=== PATIENT | female | born 1935 | race Caucasian/White ===

== ENCOUNTER 2019-09-01 21:25 | Inpatient (IN) ==
[2019-09-02] MEDS ORDERED: Naloxone 0.4 MG/ML INJ IVP PRN (03:52)
[2019-09-02] MEDS ORDERED: 0.9 % Sodium Chloride 1,000 ML IVC SCH (04:00)
[2019-09-02 04:23] LABS: Basophils # 0.1 K/mcL (0.0-0.2); Basophils % 0.4 %; Hematocrit 38.8 % (35.3-44.9); Hemoglobin 11.6 g/dL (11.5-15.4); Immature Granulocytes % 3.2 % (0-4); Lymphocytes # 0.4 K/mcL (0.6-4.6); Lymphocytes % 3.1 %; Mean Corpuscular HGB Conc 29.9 g/dL (31.6-35.5); Mean Corpuscular Volume 100.3 fL (83.0-100.0); Mean Platelet Volume 11.1 fL (9.4-12.4); Monocytes # 0.3 K/mcL (0.0-1.3); Monocytes % 2.7 %; Neutrophils # 10.9 K/mcL (1.6-8.9); Platelet Count 167 K/mcL (140-400); Red Blood Count 3.87 M/mcL (3.82-4.97); Red Cell Distribution Width 13.5 % (11.5-14.5); Segmented Neutrophils % 90.6 %
[2019-09-02 04:25] LABS: INR 0.9; Prothrombin Time 10.2 Seconds (9.4-12.1)
[2019-09-02 04:27] LABS: Activated Partial Thrombo Time 23.6 Seconds (26.0-36.0)
[2019-09-02 04:43] LABS: Albumin 2.7 g/dL (3.5-5.7); Albumin/Globulin Ratio 1.1 (1.1-2.2); Bilirubin,Total 0.2 mg/dL (0.3-1.0); Calcium 8.4 mg/dL (8.6-10.3); Globulin 2.5 g/dL (2.4-3.5); Magnesium 2.1 mg/dL (1.6-2.6); Phosphorous 4.3 mg/dL (2.7-4.5); Potassium 4.1 mEq/L (3.5-5.1); Total Protein 5.2 g/dL (6.4-8.9); Troponin I 0.08 ng/mL (< 0.04)
[2019-09-02] MEDS ORDERED: 0.9 % Sodium Chloride 500 ML IVC ONE (05:55)
[2019-09-02] MEDS ORDERED: cefTRIAXone 1,000 MG in Water for inj. (sterile) 10 ML IVPB SCH (06:00)
[2019-09-02] MEDS: *HR* Heparin 5,000 UNIT/ML VIAL SQ SCH ×3 (06:32→21:48)
[2019-09-02] MEDS: MethylPREDNISolone 40 MG/ML VIAL IVP SCH ×3 (06:33→18:46)
[2019-09-02] MEDS: Azithromycin 500 MG in 0.9 % Sodium Chloride 250 ML IVPB SCH (06:33)
[2019-09-02] MEDS: Ipratropium/Albuterol Neb 3 ML IH SCH ×5 (08:19→23:33)
[2019-09-02] MEDS: Piperacillin/Tazobactam 3.375 GM in 0.9 % Sodium Chloride Mini Bag 100 ML IVPB SCH ×2 (11:25→21:47)
[2019-09-03 02:09] LABS: Hematocrit 39.3 % (35.3-44.9); Hemoglobin 11.9 g/dL (11.5-15.4); Immature Granulocytes % 8.2 % (0-4); Lymphocytes # 0.3 K/mcL (0.6-4.6); Lymphocytes % 3.2 %; Mean Corpuscular HGB Conc 30.3 g/dL (31.6-35.5); Mean Corpuscular Hemoglobin 29.4 pg (28.0-33.3); Mean Platelet Volume 11.4 fL (9.4-12.4); Monocytes # 0.4 K/mcL (0.0-1.3); Neutrophils # 8.9 K/mcL (1.6-8.9); Platelet Count 165 K/mcL (140-400); Red Blood Count 4.05 M/mcL (3.82-4.97); Red Cell Distribution Width 13.3 % (11.5-14.5); Segmented Neutrophils % 84.6 %; White Blood Count 10.5 K/mcL (4.3-11.1)
[2019-09-03 02:25] LABS: Calcium 8.1 mg/dL (8.6-10.3)
[2019-09-03 02:30] LABS: Platelet Estimate Normal (Normal)
[2019-09-03] MEDS: Ipratropium/Albuterol Neb 3 ML IH SCH ×6 (03:57→23:45)
[2019-09-03] MEDS: Azithromycin 500 MG in 0.9 % Sodium Chloride 250 ML IVPB SCH (06:27)
[2019-09-03] MEDS: *HR* Heparin 5,000 UNIT/ML VIAL SQ SCH ×3 (06:28→21:54)
[2019-09-03] MEDS: Piperacillin/Tazobactam 3.375 GM in 0.9 % Sodium Chloride Mini Bag 100 ML IVPB SCH ×2 (10:57→21:55)
[2019-09-03] MEDS: MethylPREDNISolone 40 MG/ML VIAL IVP SCH ×2 (10:57→18:45)
[2019-09-04] MEDS: MethylPREDNISolone 40 MG/ML VIAL IVP SCH ×3 (00:41→16:02)
[2019-09-04] MEDS: Ipratropium/Albuterol Neb 3 ML IH SCH ×6 (04:22→23:39)
[2019-09-04] MEDS: *HR* Heparin 5,000 UNIT/ML VIAL SQ SCH ×3 (06:02→21:58)
[2019-09-04] MEDS: Azithromycin 500 MG in 0.9 % Sodium Chloride 250 ML IVPB SCH (06:02)
[2019-09-04 06:41] LABS: Hematocrit 42.6 % (35.3-44.9); Hemoglobin 12.5 g/dL (11.5-15.4); Mean Corpuscular HGB Conc 29.3 g/dL (31.6-35.5); Mean Corpuscular Hemoglobin 29.7 pg (28.0-33.3); Mean Corpuscular Volume 101.2 fL (83.0-100.0); Platelet Count 152 K/mcL (140-400); Red Blood Count 4.21 M/mcL (3.82-4.97); Red Cell Distribution Width 13.4 % (11.5-14.5); White Blood Count 11.9 K/mcL (4.3-11.1)
[2019-09-04 07:07] LABS: Calcium 8.7 mg/dL (8.6-10.3); Potassium 4.5 mEq/L (3.5-5.1)
[2019-09-04 07:13] LABS: Lymphocytes # 1.1 K/mcL (0.6-4.6); Monocytes # 0.1 K/mcL (0.0-1.3); Neutrophils # 10.6 K/mcL (1.6-8.9); Platelet Estimate Normal (Normal); Reactive Lymphocytes Present (Not Present)
[2019-09-04] MEDS: Piperacillin/Tazobactam 3.375 GM in 0.9 % Sodium Chloride Mini Bag 100 ML IVPB SCH ×2 (09:02→21:58)
[2019-09-04] MEDS: Metoprolol XL (24 HR) Succ 50 MG TAB.ER.24H PO SCH (11:56)
[2019-09-04] MEDS ORDERED: E-Z-PAQUE (BARIUM SULF) SUSP 1 BOTTLE PO ONE (13:40)
[2019-09-04] MEDS ORDERED: E-Z-HD (BARIUM SULF) SUSPENSION PO ONE (13:40)
[2019-09-05] MEDS ORDERED: *HR* Labetalol 20 MG/4 ML SYRINGE IVP ONE (00:55)
[2019-09-05] MEDS: MethylPREDNISolone 40 MG/ML VIAL IVP SCH ×4 (01:36→16:19)
[2019-09-05] MEDS: Ipratropium/Albuterol Neb 3 ML IH SCH ×6 (03:32→23:19)
[2019-09-05] MEDS ORDERED: *HR* Metoprolol 5 MG/5 ML VIAL IVP ONE (03:44)
[2019-09-05 04:23] LABS: Calcium 8.4 mg/dL (8.6-10.3); Potassium 4.2 mEq/L (3.5-5.1)
[2019-09-05] MEDS: *HR* Heparin 5,000 UNIT/ML VIAL SQ SCH ×3 (05:12→22:18)
[2019-09-05] MEDS: Azithromycin 500 MG in 0.9 % Sodium Chloride 250 ML IVPB SCH (05:12)
[2019-09-05 05:43] LABS: Mean Corpuscular HGB Conc 29.3 g/dL (31.6-35.5); Mean Corpuscular Hemoglobin 29.1 pg (28.0-33.3); Mean Corpuscular Volume 99.5 fL (83.0-100.0); Mean Platelet Volume 10.6 fL (9.4-12.4); Platelet Count 151 K/mcL (140-400); Red Blood Count 4.12 M/mcL (3.82-4.97); Red Cell Distribution Width 13.3 % (11.5-14.5); White Blood Count 12.4 K/mcL (4.3-11.1)
[2019-09-05 06:56] LABS: Lymphocytes # 1.2 K/mcL (0.6-4.6); Monocytes # 0.3 K/mcL (0.0-1.3); Neutrophils # 10.7 K/mcL (1.6-8.9); Platelet Estimate Normal (Normal)
[2019-09-05] MEDS: Metoprolol XL (24 HR) Succ 50 MG TAB.ER.24H PO SCH (08:32)
[2019-09-05] MEDS: Piperacillin/Tazobactam 3.375 GM in 0.9 % Sodium Chloride Mini Bag 100 ML IVPB SCH ×2 (08:39→22:18)
[2019-09-05] MEDS ORDERED: Acetaminophen 325 MG TABLET PO PRN (09:27)
[2019-09-05] MEDS: amLODIPine 5 MG TABLET PO SCH (09:56)
[2019-09-05 12:19] LABS: Bilirubin,Urine Negative (Negative); Blood,Urine Moderate (Negative); Clarity,Urine Turbid (Clear); Glucose,Urine (UA) Normal (Normal); Ketones,Urine Negative (Negative); Leukocyte Esterase,Urine Large (Negative); Nitrite,Urine Negative (Negative); Protein,Urine 100 mg/dL (Neg-Trace); Urobilinogen,Urine Normal (Normal)
[2019-09-05 12:20] LABS: Sodium, Urine 113.6 mEq/L
[2019-09-05 12:26] LABS: Color,Urine Light-Yellow (Yellow)
[2019-09-05 12:34] LABS: Bacteria,Urine None Seen per hpf (None-Few); Squamous Epithelial Cell,Urine Many per lpf (None-Few); WBC,Urine TNTC per hpf (0-3)
[2019-09-05 13:00] LABS: Yeast,Urine Many per hpf (None Seen)
[2019-09-05 13:01] LABS: Renal Epithelial Cells,Urine Few per hpf (None-Few); Transitional Epi Cells,Urine Few per hpf (None-Few)
[2019-09-05] MEDS ORDERED: Metoprolol XL (24 HR) Succ 50 MG TAB.ER.24H PO ONE (15:00)
[2019-09-06] MEDS: MethylPREDNISolone 40 MG/ML VIAL IVP SCH ×2 (01:07→09:27)
[2019-09-06] MEDS: Ipratropium/Albuterol Neb 3 ML IH SCH ×3 (03:45→11:09)
[2019-09-06] MEDS: *HR* Heparin 5,000 UNIT/ML VIAL SQ SCH ×2 (05:14→12:43)
[2019-09-06] MEDS: Azithromycin 500 MG in 0.9 % Sodium Chloride 250 ML IVPB SCH (05:15)
[2019-09-06 06:41] VITALS: BP 167/79
[2019-09-06] MEDS: Piperacillin/Tazobactam 3.375 GM in 0.9 % Sodium Chloride Mini Bag 100 ML IVPB SCH (08:20)
[2019-09-06] MEDS: amLODIPine 5 MG TABLET PO SCH (08:24)
[2019-09-06] MEDS ORDERED: predniSONE 20 MG TABLET PO SCH (09:00)
[2019-09-06] MEDS ORDERED: Metoprolol XL (24 HR) Succ 50 MG TAB.ER.24H PO SCH (09:00)
[2019-09-06] MEDS ORDERED: MethylPREDNISolone 40 MG/ML VIAL IVP SCH (18:00)
== END 2019-09-06 15:44 | DRG 682 ==
LOC: 2NENU → SUATTDRO 09-02 01:45
PROVIDERS: ADMIT Student in an Organized Health Care Education/Training Program; ATTEND Internal Medicine

== ENCOUNTER 2019-09-08 10:26 | Inpatient (IN) ==
[2019-09-08] MEDS ORDERED: 0.9 % Sodium Chloride 250 ML IVC ONE (10:39)
[2019-09-08 11:06] LABS: Basophils % 0.2 %; Eosinophils # 0.2 K/mcL (0.0-0.6); Eosinophils % 0.8 %; Hemoglobin 10.6 g/dL (11.5-15.4); Immature Granulocytes % 1.5 % (0-4); Lymphocytes % 3.3 %; Mean Corpuscular HGB Conc 29.4 g/dL (31.6-35.5); Mean Corpuscular Hemoglobin 29.8 pg (28.0-33.3); Mean Corpuscular Volume 101.1 fL (83.0-100.0); Monocytes % 5.3 %; Neutrophils # 17.5 K/mcL (1.6-8.9); Platelet Count 140 K/mcL (140-400); Red Blood Count 3.56 M/mcL (3.82-4.97); Red Cell Distribution Width 13.2 % (11.5-14.5); Segmented Neutrophils % 88.9 %
[2019-09-08 11:07] LABS: Lymphocytes # 0.7 K/mcL (0.6-4.6); White Blood Count 19.7 K/mcL (4.3-11.1)
[2019-09-08 11:13] LABS: INR 0.9; Prothrombin Time 10.7 Seconds (9.4-12.1)
[2019-09-08 11:21] LABS: Albumin 2.6 g/dL (3.5-5.7); Albumin/Globulin Ratio 1.3 (1.1-2.2); Bilirubin,Total 0.3 mg/dL (0.3-1.0); Calcium 8.5 mg/dL (8.6-10.3); Potassium 3.5 mEq/L (3.5-5.1); Total Protein 4.6 g/dL (6.4-8.9)
[2019-09-08] MEDS ORDERED: Naloxone 0.4 MG/ML INJ IVP PRN (12:39)
[2019-09-08] MEDS ORDERED: Ondansetron 4 MG/2 ML VIAL IVP PRN (12:43)
[2019-09-08] MEDS ORDERED: D5% in Water 1,000 ML IVC PRN (12:44)
[2019-09-08] MEDS ORDERED: *HR* Dextrose 50 % in Water (Syg) 50 ML SYRINGE IVP PRN (12:44)
[2019-09-08] MEDS ORDERED: Dextrose Gel 15 GM/37.5 ML TUBE PO PRN ×2 (12:44)
[2019-09-08] MEDS ORDERED: D5% in 0.45% NACL 1,000 ML IVC SCH (12:45)
[2019-09-08] MEDS ORDERED: Ipratropium/Albuterol Neb 3 ML IH PRN (12:48)
[2019-09-08] MEDS ORDERED: levoFLOXacin 750 MG/150 ML 750 MG/150 ML BAG IVPB SCH ×2 (12:50→14:30)
[2019-09-08 15:44] LABS: Basophils % 0.2 %; Eosinophils # 0.1 K/mcL (0.0-0.6); Eosinophils % 0.6 %; Hematocrit 36.6 % (35.3-44.9); Hemoglobin 10.9 g/dL (11.5-15.4); Immature Granulocytes % 1.7 % (0-4); Lymphocytes # 0.6 K/mcL (0.6-4.6); Lymphocytes % 3.5 %; Mean Corpuscular HGB Conc 29.8 g/dL (31.6-35.5); Mean Corpuscular Hemoglobin 29.4 pg (28.0-33.3); Mean Corpuscular Volume 98.7 fL (83.0-100.0); Mean Platelet Volume 11.3 fL (9.4-12.4); Monocytes # 0.7 K/mcL (0.0-1.3); Monocytes % 4.1 %; Neutrophils # 14.4 K/mcL (1.6-8.9); Platelet Count 143 K/mcL (140-400); Red Blood Count 3.71 M/mcL (3.82-4.97); Red Cell Distribution Width 13.2 % (11.5-14.5); Segmented Neutrophils % 89.9 %
[2019-09-08] MEDS: Insulin LISPRO 300 UNITS/3 ML VIAL SQ SCH (18:52)
[2019-09-08] MEDS: MetroNIDAZOLE 500 MG/100 ML 500 MG/100 ML BAG IVPB SCH ×3 (18:59→23:04)
[2019-09-08] MEDS: Pantoprazole 40 MG VIAL IVP SCH (19:00)
[2019-09-08] MEDS: Melatonin 3 MG TABLET PO SCH (21:01)
[2019-09-08 21:20] LABS: Basophils % 0.1 %; Eosinophils # 0.1 K/mcL (0.0-0.6); Eosinophils % 1.2 %; Hematocrit 31.7 % (35.3-44.9); Lymphocytes # 0.7 K/mcL (0.6-4.6); Lymphocytes % 6.3 %; Mean Corpuscular Hemoglobin 29.3 pg (28.0-33.3); Mean Platelet Volume 10.8 fL (9.4-12.4); Monocytes # 0.7 K/mcL (0.0-1.3); Monocytes % 6.4 %; Neutrophils # 9.7 K/mcL (1.6-8.9); Platelet Count 119 K/mcL (140-400); Red Blood Count 3.14 M/mcL (3.82-4.97); Red Cell Distribution Width 13.2 % (11.5-14.5); White Blood Count 11.5 K/mcL (4.3-11.1)
[2019-09-08 21:28] LABS: Hemoglobin 9.2 g/dL (11.5-15.4)
[2019-09-09] MEDS: Insulin LISPRO 300 UNITS/3 ML VIAL SQ SCH ×5 (00:19→23:44)
[2019-09-09 03:02] LABS: Calcium 7.8 mg/dL (8.6-10.3); Magnesium 1.4 mg/dL (1.6-2.6); Phosphorous 3.8 mg/dL (2.7-4.5); Potassium 3.5 mEq/L (3.5-5.1)
[2019-09-09] MEDS: MetroNIDAZOLE 500 MG/100 ML 500 MG/100 ML BAG IVPB SCH ×2 (06:07→13:16)
[2019-09-09] MEDS: Pantoprazole 40 MG VIAL IVP SCH ×2 (06:07→17:34)
[2019-09-09 08:18] LABS: ABG Base Excess 12 mEq/L (-2 to 3); ABG HCO3 40 mEq/L (21-27); ABG Oxygen Saturation 92 % (95-98); ABG PCO2 81 mmHg (35-45); ABG PH 7.31 pH Units (7.32-7.45); ABG PO2 74 mmHg (85-104); ABG TCO2 43 mEq/L (20-26)
[2019-09-09] MEDS: Metoprolol XL (24 HR) Succ 50 MG TAB.ER.24H PO SCH (09:45)
[2019-09-09] MEDS: Cyanocobalamin (B-12) 1,000 MCG TABLET PO SCH (09:45)
[2019-09-09] MEDS ORDERED: 0.9 % Sodium Chloride 1,000 ML IVC ONE (13:28)
[2019-09-09] MEDS ORDERED: Calcium Gluconate 1gm/50mL 1 GM/50 ML BAG IVPB ONE (13:44)
[2019-09-09 14:03] LABS: Basophils % 0.1 %; Monocytes % 5.8 %
[2019-09-09 14:04] LABS: Hematocrit 32.9 % (35.3-44.9); Hemoglobin 9.8 g/dL (11.5-15.4); Mean Corpuscular HGB Conc 29.8 g/dL (31.6-35.5); Mean Corpuscular Hemoglobin 29.1 pg (28.0-33.3); Mean Corpuscular Volume 97.6 fL (83.0-100.0); Mean Platelet Volume 10.4 fL (9.4-12.4); Platelet Count 114 K/mcL (140-400); Red Blood Count 3.37 M/mcL (3.82-4.97); Segmented Neutrophils % 84.8 %; White Blood Count 11.7 K/mcL (4.3-11.1)
[2019-09-09 14:05] LABS: Eosinophils # 0.4 K/mcL (0.0-0.6); Lymphocytes # 0.6 K/mcL (0.6-4.6); Lymphocytes % 5.3 %; Monocytes # 0.7 K/mcL (0.0-1.3); Neutrophils # 9.9 K/mcL (1.6-8.9)
[2019-09-09 14:06] LABS: Anisocytosis 1+ (Not Present); Hypochromasia Present (Not Present); Platelet Estimate Slight Decrease (Normal)
[2019-09-09] MEDS ORDERED: Cefdinir 300 MG CAPSULE PO SCH (21:00)
[2019-09-09] MEDS: *HR* OxyCODONE/APAP 5/325 TABLET PO PRN (21:10)
[2019-09-09] MEDS: Melatonin 3 MG TABLET PO SCH (21:10)
[2019-09-10 05:43] LABS: ABG Base Excess 8 mEq/L (-2 to 3); ABG HCO3 35 mEq/L (21-27); ABG Oxygen Saturation 95 % (95-98); ABG PCO2 64 mmHg (35-45); ABG PH 7.35 pH Units (7.32-7.45); ABG PO2 80 mmHg (85-104); ABG TCO2 37 mEq/L (20-26); Blood Gas Pressure Support 14 cm H2O
[2019-09-10] MEDS: Insulin LISPRO 300 UNITS/3 ML VIAL SQ SCH ×4 (05:52→23:35)
[2019-09-10] MEDS: Pantoprazole 40 MG VIAL IVP SCH ×2 (05:56→17:09)
[2019-09-10 06:09] LABS: Basophils % 0.2 %; Eosinophils # 0.3 K/mcL (0.0-0.6); Eosinophils % 2.7 %; Hematocrit 33.3 % (35.3-44.9); Hemoglobin 9.9 g/dL (11.5-15.4); Immature Granulocytes % 1.1 % (0-4); Lymphocytes # 0.5 K/mcL (0.6-4.6); Lymphocytes % 5.1 %; Mean Corpuscular HGB Conc 29.7 g/dL (31.6-35.5); Mean Corpuscular Hemoglobin 28.9 pg (28.0-33.3); Mean Corpuscular Volume 97.4 fL (83.0-100.0); Mean Platelet Volume 10.5 fL (9.4-12.4); Monocytes # 0.6 K/mcL (0.0-1.3); Monocytes % 5.8 %; Neutrophils # 8.3 K/mcL (1.6-8.9); Platelet Count 119 K/mcL (140-400); Red Blood Count 3.42 M/mcL (3.82-4.97); Red Cell Distribution Width 13.1 % (11.5-14.5); Segmented Neutrophils % 85.1 %; White Blood Count 9.8 K/mcL (4.3-11.1)
[2019-09-10 06:30] LABS: Calcium 8.2 mg/dL (8.6-10.3); Potassium 3.3 mEq/L (3.5-5.1)
[2019-09-10] MEDS ORDERED: D5% in Water 1,000 ML IVC SCH (08:30)
[2019-09-10] MEDS: Cefdinir 300 MG CAPSULE PO SCH (09:19)
[2019-09-10] MEDS: predniSONE 20 MG TABLET PO SCH (09:19)
[2019-09-10] MEDS: Cyanocobalamin (B-12) 1,000 MCG TABLET PO SCH (09:19)
[2019-09-10] MEDS: Metoprolol XL (24 HR) Succ 50 MG TAB.ER.24H PO SCH (09:20)
[2019-09-10] MEDS: Ipratropium/Albuterol Neb 3 ML IH SCH ×4 (11:57→23:48)
[2019-09-10] MEDS: Budesonide/Formoterol 160/4.5 1 PUFF INH IH SCH ×2 (11:57→19:50)
[2019-09-10] MEDS: *HR* OxyCODONE/APAP 5/325 TABLET PO PRN (13:07)
[2019-09-10] MEDS ORDERED: Potassium Chloride 40 MEQ, Lidocaine 1% 2 ML in 0.9 % Sodium Chloride 500 ML IVPB ONE (13:17)
[2019-09-10 13:22] LABS: Adenovirus F 40/41 PCR Not detected (Not detect); Astrovirus PCR Not detected (Not detect); C.difficile Toxin A/B Gene PCR Not detected (Not detect); Campylobacter by PCR Not detected (Not detect); Cryptosporidium by PCR Not detected (Not detect); Cyclospora cayetanensis PCR Not detected (Not detect); E. coli O157 by PCR Not detected (Not detect); Entamoeba histolytica PCR Not detected (Not detect); Enteroaggregative E.coli(EAEC) Not detected (Not detect); Enteropathogenic E.coli(EPEC) Not detected (Not detect); Enterotoxigenic E.coli (ETEC) Not detected (Not detect); Giardia lamblia PCR Not detected (Not detect); Norovirus GI/GII PCR Not detected (Not detect); Plesiomonas shigelloides PCR Not detected (Not detect); Rotavirus A PCR Not detected (Not detect); Salmonella PCR Not detected (Not detect); Sapovirus PCR Not detected (Not detect); Shig/EnteroinvasiveE coli EIEC Not detected (Not detect); Shigalike tox-prod E coli STEC Not detected (Not detect); Vibrio PCR Not detected (Not detect); Vibrio cholerae PCR Not detected (Not detect); Yersinia enterocolitica PCR Not detected (Not detect)
[2019-09-10] MEDS: amLODIPine 5 MG TABLET PO SCH (15:08)
[2019-09-10] MEDS: Melatonin 3 MG TABLET PO SCH (20:48)
[2019-09-11 03:02] LABS: Basophils % 0.1 %; Eosinophils % 0.4 %; Hematocrit 28.9 % (35.3-44.9); Immature Granulocytes % 0.7 % (0-4); Lymphocytes # 0.6 K/mcL (0.6-4.6); Lymphocytes % 6.1 %; Mean Corpuscular HGB Conc 31.1 g/dL (31.6-35.5); Mean Corpuscular Volume 96.3 fL (83.0-100.0); Mean Platelet Volume 11.1 fL (9.4-12.4); Monocytes # 0.5 K/mcL (0.0-1.3); Monocytes % 5.2 %; Platelet Count 117 K/mcL (140-400); Red Cell Distribution Width 13.2 % (11.5-14.5); Segmented Neutrophils % 87.5 %; White Blood Count 9.1 K/mcL (4.3-11.1)
[2019-09-11 03:19] LABS: Calcium 8.1 mg/dL (8.6-10.3); Magnesium 1.6 mg/dL (1.6-2.6); Phosphorous 2.3 mg/dL (2.7-4.5); Potassium 3.6 mEq/L (3.5-5.1)
[2019-09-11] MEDS: Ipratropium/Albuterol Neb 3 ML IH SCH ×6 (03:46→23:39)
[2019-09-11] MEDS: Insulin LISPRO 300 UNITS/3 ML VIAL SQ SCH ×3 (05:22→17:23)
[2019-09-11] MEDS: Pantoprazole 40 MG VIAL IVP SCH (05:25)
[2019-09-11] MEDS: Budesonide/Formoterol 160/4.5 1 PUFF INH IH SCH ×2 (07:48→20:10)
[2019-09-11] MEDS: predniSONE 20 MG TABLET PO SCH (10:05)
[2019-09-11] MEDS: *HR* OxyCODONE/APAP 5/325 TABLET PO PRN ×2 (10:05→17:23)
[2019-09-11] MEDS: Cefdinir 300 MG CAPSULE PO SCH (10:06)
[2019-09-11] MEDS: Metoprolol XL (24 HR) Succ 50 MG TAB.ER.24H PO SCH (10:06)
[2019-09-11] MEDS: amLODIPine 5 MG TABLET PO SCH (10:06)
[2019-09-11] MEDS: Cyanocobalamin (B-12) 1,000 MCG TABLET PO SCH (10:06)
[2019-09-11] MEDS: Nystatin Ointment 15 GM TUBE TP SCH ×3 (13:13→21:18)
[2019-09-11] MEDS: Melatonin 3 MG TABLET PO SCH (21:18)
[2019-09-12] MEDS: Insulin LISPRO 300 UNITS/3 ML VIAL SQ SCH ×5 (00:41→21:55)
[2019-09-12] MEDS: Ipratropium/Albuterol Neb 3 ML IH SCH ×5 (04:35→19:40)
[2019-09-12] MEDS: Budesonide/Formoterol 160/4.5 1 PUFF INH IH SCH ×2 (07:19→19:40)
[2019-09-12 08:41] LABS: Basophils % 0.1 %; Eosinophils # 0.1 K/mcL (0.0-0.6); Eosinophils % 0.7 %; Hematocrit 27.3 % (35.3-44.9); Hemoglobin 8.4 g/dL (11.5-15.4); Immature Granulocytes % 0.6 % (0-4); Lymphocytes # 0.8 K/mcL (0.6-4.6); Lymphocytes % 11.5 %; Mean Corpuscular HGB Conc 30.8 g/dL (31.6-35.5); Mean Corpuscular Hemoglobin 29.7 pg (28.0-33.3); Mean Corpuscular Volume 96.5 fL (83.0-100.0); Mean Platelet Volume 11.1 fL (9.4-12.4); Monocytes # 0.5 K/mcL (0.0-1.3); Monocytes % 6.8 %; Neutrophils # 5.6 K/mcL (1.6-8.9); Platelet Count 124 K/mcL (140-400); Red Blood Count 2.83 M/mcL (3.82-4.97); Red Cell Distribution Width 13.1 % (11.5-14.5); Segmented Neutrophils % 80.3 %
[2019-09-12 09:02] LABS: Calcium 8.1 mg/dL (8.6-10.3); Phosphorous 2.7 mg/dL (2.7-4.5); Potassium 3.3 mEq/L (3.5-5.1)
[2019-09-12] MEDS: Cyanocobalamin (B-12) 1,000 MCG TABLET PO SCH (09:30)
[2019-09-12] MEDS: Metoprolol XL (24 HR) Succ 50 MG TAB.ER.24H PO SCH (09:30)
[2019-09-12] MEDS: predniSONE 20 MG TABLET PO SCH (09:30)
[2019-09-12] MEDS: Cefdinir 300 MG CAPSULE PO SCH (09:30)
[2019-09-12] MEDS: amLODIPine 5 MG TABLET PO SCH (09:30)
[2019-09-12] MEDS: Iron Sucrose Complex 200 MG in 0.9 % Sodium Chloride 100 ML IVPB SCH (12:46)
[2019-09-12] MEDS: Nystatin Ointment 15 GM TUBE TP SCH ×4 (12:47→22:00)
[2019-09-12 13:08] LABS: Hematocrit 29.3 % (35.3-44.9); Hemoglobin 8.6 g/dL (11.5-15.4)
[2019-09-12 13:20] LABS: Calcium 8.2 mg/dL (8.6-10.3); Potassium 3.3 mEq/L (3.5-5.1)
[2019-09-12] MEDS: Melatonin 3 MG TABLET PO SCH (22:00)
[2019-09-13] MEDS: Ipratropium/Albuterol Neb 3 ML IH SCH ×7 (00:04→23:05)
[2019-09-13 05:04] LABS: Immature Granulocytes % 1.2 % (0-4); Lymphocytes # 0.4 K/mcL (0.6-4.6); Lymphocytes % 6.8 %; Mean Corpuscular HGB Conc 29.6 g/dL (31.6-35.5); Mean Corpuscular Hemoglobin 29.4 pg (28.0-33.3); Mean Corpuscular Volume 99.3 fL (83.0-100.0); Monocytes # 0.4 K/mcL (0.0-1.3); Monocytes % 6.5 %; Neutrophils # 5.5 K/mcL (1.6-8.9); Platelet Count 133 K/mcL (140-400); Red Blood Count 2.72 M/mcL (3.82-4.97); Red Cell Distribution Width 13.2 % (11.5-14.5); Segmented Neutrophils % 85.5 %; White Blood Count 6.5 K/mcL (4.3-11.1)
[2019-09-13 05:25] LABS: Calcium 7.9 mg/dL (8.6-10.3); Phosphorous 2.5 mg/dL (2.7-4.5); Potassium 4.1 mEq/L (3.5-5.1)
[2019-09-13] MEDS: Insulin LISPRO 300 UNITS/3 ML VIAL SQ SCH ×4 (07:30→20:46)
[2019-09-13] MEDS ORDERED: D5% in Water 1,000 ML IVC SCH (08:15)
[2019-09-13] MEDS: Cefdinir 300 MG CAPSULE PO SCH (10:02)
[2019-09-13] MEDS: amLODIPine 5 MG TABLET PO SCH (10:02)
[2019-09-13] MEDS: predniSONE 20 MG TABLET PO SCH (10:02)
[2019-09-13] MEDS: Metoprolol XL (24 HR) Succ 50 MG TAB.ER.24H PO SCH (10:02)
[2019-09-13] MEDS: Cyanocobalamin (B-12) 1,000 MCG TABLET PO SCH (10:02)
[2019-09-13] MEDS: Budesonide/Formoterol 160/4.5 1 PUFF INH IH SCH ×2 (11:12→20:29)
[2019-09-13 13:57] LABS: Basophils % 0.1 %; Eosinophils # 0.1 K/mcL (0.0-0.6); Eosinophils % 0.5 %; Hematocrit 30.7 % (35.3-44.9); Hemoglobin 9.3 g/dL (11.5-15.4); Immature Granulocytes % 0.9 % (0-4); Lymphocytes # 0.8 K/mcL (0.6-4.6); Lymphocytes % 8.2 %; Mean Corpuscular HGB Conc 30.3 g/dL (31.6-35.5); Mean Corpuscular Hemoglobin 29.2 pg (28.0-33.3); Mean Corpuscular Volume 96.2 fL (83.0-100.0); Mean Platelet Volume 11.3 fL (9.4-12.4); Monocytes # 0.7 K/mcL (0.0-1.3); Monocytes % 7.6 %; Neutrophils # 7.9 K/mcL (1.6-8.9); Platelet Count 162 K/mcL (140-400); Red Blood Count 3.19 M/mcL (3.82-4.97); Red Cell Distribution Width 13.2 % (11.5-14.5); Segmented Neutrophils % 82.7 %; White Blood Count 9.5 K/mcL (4.3-11.1)
[2019-09-13 14:21] LABS: Calcium 8.5 mg/dL (8.6-10.3); Potassium 3.6 mEq/L (3.5-5.1)
[2019-09-13] MEDS: Nystatin Ointment 15 GM TUBE TP SCH ×4 (15:04→20:46)
[2019-09-13] MEDS: Fluconazole 100 MG TABLET PO SCH (15:09)
[2019-09-13] MEDS: D5% in Water 1,000 ML IVC SCH (19:37)
[2019-09-13] MEDS: Melatonin 3 MG TABLET PO SCH (20:46)
[2019-09-14] MEDS: Ipratropium/Albuterol Neb 3 ML IH SCH ×3 (03:26→11:42)
[2019-09-14 06:59] LABS: Basophils % 0.1 %; Eosinophils # 0.2 K/mcL (0.0-0.6); Eosinophils % 2.9 %; Hematocrit 28.3 % (35.3-44.9); Hemoglobin 8.4 g/dL (11.5-15.4); Lymphocytes # 0.7 K/mcL (0.6-4.6); Lymphocytes % 9.7 %; Mean Corpuscular HGB Conc 29.7 g/dL (31.6-35.5); Mean Corpuscular Hemoglobin 28.9 pg (28.0-33.3); Mean Corpuscular Volume 97.3 fL (83.0-100.0); Mean Platelet Volume 11.1 fL (9.4-12.4); Monocytes # 0.6 K/mcL (0.0-1.3); Monocytes % 8.4 %; Platelet Count 150 K/mcL (140-400); Red Blood Count 2.91 M/mcL (3.82-4.97); Red Cell Distribution Width 13.3 % (11.5-14.5); Segmented Neutrophils % 77.9 %; White Blood Count 7.7 K/mcL (4.3-11.1)
[2019-09-14 07:08] LABS: Calcium 7.9 mg/dL (8.6-10.3); Phosphorous 2.9 mg/dL (2.7-4.5); Potassium 3.7 mEq/L (3.5-5.1)
[2019-09-14] MEDS: D5% in Water 1,000 ML IVC SCH (07:26)
[2019-09-14] MEDS: Budesonide/Formoterol 160/4.5 1 PUFF INH IH SCH (07:56)
[2019-09-14] MEDS: Insulin LISPRO 300 UNITS/3 ML VIAL SQ SCH ×2 (10:09→12:26)
[2019-09-14] MEDS: Metoprolol XL (24 HR) Succ 50 MG TAB.ER.24H PO SCH (10:23)
[2019-09-14] MEDS: predniSONE 20 MG TABLET PO SCH (10:24)
[2019-09-14] MEDS: Fluconazole 100 MG TABLET PO SCH (10:24)
[2019-09-14] MEDS: Cyanocobalamin (B-12) 1,000 MCG TABLET PO SCH (10:24)
[2019-09-14] MEDS: Cefdinir 300 MG CAPSULE PO SCH (10:24)
[2019-09-14] MEDS: amLODIPine 5 MG TABLET PO SCH (10:24)
[2019-09-14] MEDS: Nystatin Ointment 15 GM TUBE TP SCH ×2 (10:25→12:26)
[2019-09-14 11:18] VITALS: BP 144/74
[2019-09-14] MEDS: Iron Sucrose Complex 200 MG in 0.9 % Sodium Chloride 100 ML IVPB SCH (12:24)
== END 2019-09-14 16:01 | DRG 377 ==
LOC: EMEROOARM 10:26 → 3ANU 10:26 → SUATTDRO 09-09 11:31
PROVIDERS: ADMIT Internal Medicine; ATTEND Internal Medicine